=== PATIENT | female | born 1980 | race Hispanic/Latino ===

== ENCOUNTER 2018-06-19 00:39 | Inpatient (IN) | payer MEDICAID, SELFPAY ==
[2018-06-19 01:20] VITALS: BMI 27.3
[2018-06-19] MEDS ORDERED: Promethazine HCl 25 MG/ML VIAL IM PRN ×2 (02:10→09:58)
[2018-06-19] MEDS ORDERED: Ondansetron HCl/PF 4 MG/2 ML Vial IVP PRN ×3 (02:10→18:28)
[2018-06-19] MEDS ORDERED: Lidocaine 1% (PF) 30 ML VIAL SC PRN (02:10)
[2018-06-19] MEDS ORDERED: NS / Oxytocin 40 units/1000ml 1,000 ML IV PRN (02:10)
--- NOTE | 2018-06-19 02:14 | PDOC.LDHP ---
Labor and Delivery H&P Chief complaint: loss of fluid (clear, at 22:30 on 06/18/18) HPI: Patient presents after loss of clear fluid 22:30. She has started to have painful contractions 6/10 since then, 5-10 minutes apart. Denies vaginal bleeding. Reports mild headache, nausea, no vomiting. Denies dysuria. Due date: 06/24/18 Dating criteria: last menstrual period Grav: 1 Para: 0 Current complications: none, other (anemia of , rubella non- immune, AMA, pap smear LSIL and HPV positive) Abnormal US findings: No Past Medical History: None Current medications: pre-lenin vitamins Previous surgical history: appendectomy Social history: none - Physical Exam Vital signs reviewed and normal: yes (102/61, 79 pulse, 18 RR, 98.3F) General: NAD, resting Heart: RRR Lungs: nonlabored breathing Abdomen: gravid Extremeties: trace edema FHT: category 1 (140/mod variability/ pos accel/ no decel) [place] contractions every: 8 min - Vaginal Exam cm dilated: 0 - OB Labs Blood type: A RH: positive Antibody Screen: negative HIV: negative RPR: negative HEPSAg: negative 1 hour GCT: negative GBS: negative Rubella: non-immune - Assessment L&D Assessment: term rupture in membranes - Plan Plan: admit to L&D, labor augmentation if indicated -: 37 yo @ 39.2 wks by LMP presents after loss of fluid and now contractions. PROM - reported at 22:30 - Amnisure pending to confirm ROM - Cervix closed on sterile spec exam - Will augment labor with pitocin - admit for induction AMA - negative Rubella non-immune - MMR post LSIL/HPV + - colposcopy PP Patient was seen and examined by Dr. Jade who is in agreement with plan as stated above. <Gloria Zavala - Last Filed: 06/19/18 04:23> - Plan Plan: other (Elderly primagravida ROM - NIL at term. Martínez score <3. Will attempt to open cervix with pitocin and consider balloon vs iupc if success is limited. Patient at elevated risk for failed IOL and primary CS due to unfavorable cx @ ROM and elderly primagravida status.) <Carlton Jade - Last Filed: 06/19/18 06:54> Allergies/Adverse Reactions: Allergies Allergy/AdvReac Type Severity Reaction Status Date / Time No Known Allergies Allergy Verified 06/19/18 01:46
[2018-06-19] MEDS ORDERED: NS w/ Oxytocin 10 units 500 ML IV SCH (02:15)
[2018-06-19 03:13] LABS: Mean Corpuscular HGB CONC 35.3 g/dL (32.0-36.0); Mean Corpuscular Hemoglobin 34.2 pg (27.0-31.0); Mean Corpuscular Volume 96.9 fL (78.0-98.0); Mean Platelet Volume 9.5 fL (7.4-10.4); Platelet Count 196 thou/uL (130-400); RBC Distribution Width 12.9 % (11.5-14.5); White Blood Cell (WBC) Count 9.5 thou/uL (4.8-10.8)
[2018-06-19] MEDS ORDERED: Sodium Chloride 0.9% 1,000 ML IV SCH (03:15)
[2018-06-19 03:50] LABS: HBSAg Index 0.16 S/CO (0-0.99); Hep B Surf Ag Non-Reactive S/CO (NonReactive)
[2018-06-19 04:17] LABS: Syphilis Antibody Nonreactive (Nonreactive); Syphilis Antibody Index 0.06 S/CO (<1.00 Non-Reactive)
[2018-06-19] MEDS: Lactated Ringer's 1,000 ML IV SCH ×4 (04:22→15:46)
[2018-06-19] MEDS ORDERED: Bupivacaine 0.5% 20 ML, fentaNYL Citrate/PF 400 MCG in Sodium Chloride 0.9% 72 ML EPIDURAL SCH (04:30)
[2018-06-19] MEDS ORDERED: DISCONTINUE ALL PREVIOUS NARCOTICS FS SCH (04:30)
[2018-06-19 05:18] LABS: Amnisure Test RUPTURE DETECTED (No Rupture)
[2018-06-19 05:19] LABS: Amnisure Internal Control QC ACCEPTABLE (ACCEPTABLE)
[2018-06-19] MEDS ORDERED: Butorphanol Tartrate 1 MG/ML VIAL ONE (06:34)
--- NOTE | 2018-06-19 07:15 | PDOC.LDPN ---
Labor & Delivery Progress Note - Subjective Subjective: painful contractions - Objective Vital signs reviewed and normal: yes General: breathing through contractions Uterine fundus: non tender Dilation: 0 FHT: category 1 [place] contractions every: 2-4 Plan: pitocin for augmentation -: 37 yo @ 39.2 wks by LMP presents after PROM and contractions. - cervical checks at 0500 and 0700 were closed - will increase pitocin for more adequate contractions - consider cook balloon insertion
--- NOTE | 2018-06-19 09:44 | PDOC.LDPN ---
Labor & Delivery Progress Note - Subjective Subjective: other - Objective Vital signs reviewed and normal: yes General: resting Uterine fundus: non tender SVE: By Ware Dilation: 3 Effacement: 50% (60%) Station: -1 FHT: category 1 Other exam findings: Position cephalic by sono done at bedside; IUPC placed by Ware IUPC placed: yes - Assessment (1) PROM (premature rupture of membranes) Code(s): O42.90 - HIREN ROM, 7TH0 BETW RUPT & ONST LABR, UNSP WEEKS OF GEST Current Visit: Yes Status: Acute Plan: continue plan of care, labor augmentation (As cervix now favorable, ok to continue Pit. Plan discussed with patient, and resident ), pitocin for augmentation
--- NOTE | 2018-06-19 09:57 | PDOC.LDPN ---
Labor & Delivery Progress Note - Subjective Subjective: comfortable, no concerns - Objective Vital signs reviewed and normal: yes General: NAD, resting, breathing through contractions Uterine fundus: non tender Dilation: 3 Effacement: 50% Station: -1 FHT: category 1 [place] contractions every: every 2-4 min Procedures: IUPC placed by Dr. Ware IUPC placed: yes Resuscitative measures: maternal IV fluids - Assessment (1) PROM (premature rupture of membranes) Code(s): O42.90 - HIREN ROM, 7TH0 BETW RUPT & ONST LABR, UNSP WEEKS OF GEST Current Visit: Yes Status: Acute Plan: continue plan of care, pitocin for augmentation -: This is a 37 yo F @ 39.2wks by LMP who presented with PROM and CTX. Doing well, continuing to follow labor progression. PROM - continue plan of care - Epidural in place - labor augmentation: continue pitocin; vaginal cytotec not indicated at this time as patient is progressing - reconfirmed cephalic position with US at the bedside - Check at 0930: /-1. Will recheck in 2-4 hours - IUPC placed at [address] Ware - Cat 1 strip - Patient's VSS Plan discussed with patient, , and Dr. Ware
[2018-06-19] MEDS ORDERED: ePHEDrine/0.9% NaCl/PF SYRINGE 50 mg/10 ml SLOW IVP PRN (09:58)
[2018-06-19] MEDS ORDERED: Naloxone HCl 0.4 mg/ml Vial IVP PRN ×2 (09:58)
[2018-06-19] MEDS ORDERED: Acetaminophen 325 MG TAB PO PRN (09:58)
[2018-06-19] MEDS ORDERED: Lactated Ringer's 500 ML IV PRN (09:58)
[2018-06-19] MEDS ORDERED: diphenhydrAMINE 50 MG/ML VIAL IVP PRN (09:58)
[2018-06-19] MEDS ORDERED: Eucerin (Mineral Oil/Petrolatum,White) 30 gm Jar TOP PRN (09:58)
[2018-06-19] MEDS ORDERED: Communication Order-Pharmacy FS SCH (10:00)
[2018-06-19] MEDS ORDERED: fentaNYL Citrate/PF 400 MCG, Bupivacaine 0.5% 20 ML in Sodium Chloride 0.9% 72 ML EPIDURAL SCH (10:00)
[2018-06-19] MEDS ORDERED: Bupivacaine HCl 0.25%/Epi 0.0005/PF 10 ML VIAL FS ONE (11:11)
[2018-06-19] MEDS ORDERED: Lidocaine 2% PF Inj 2 ML VIAL ONE ×3 (11:11→17:15)
[2018-06-19] MEDS ORDERED: ePHEDrine/0.9% NaCl/PF SYRINGE 50 mg/10 ml ONE ×2 (11:11→15:15)
[2018-06-19] MEDS ORDERED: Bupivacaine 0.25% HCL 30 ML VIAL ONE (11:11)
--- NOTE | 2018-06-19 11:47 | PDOC.LDPN ---
Labor & Delivery Progress Note - Subjective Subjective: comfortable - Objective Vital signs reviewed and normal: yes General: resting Dilation: 3 Effacement: 50% Station: -1 FHT: category 2, late decelerations (2), variability present [place] contractions every: 3min IUPC placed: yes Plan: continue plan of care, pitocin for augmentation -: reposition and continue with pit.
--- NOTE | 2018-06-19 13:26 | PDOC.LDPN ---
Labor & Delivery Progress Note - Subjective Subjective: comfortable, other (vomiting) - Objective General: NAD Dilation: 6cm Effacement: 75% Station: -1 FHT: category 2, variable decelerations [place] contractions every: 2-3min Resuscitative measures: maternal oxygen Plan: continue plan of care, pitocin for augmentation -: pt had deep decel after an episode of vomiting. repositioned patient and given a fluid bolus. Pitocin held after decel. plan to restart now as fht look improved.
--- NOTE | 2018-06-19 15:12 | PDOC.LDPN ---
Labor & Delivery Progress Note - Subjective Subjective: other (emesis x2) - Objective Vital signs reviewed and normal: yes Dilation: 8 Effacement: 90% Station: -1 FHT: category 2 [place] contractions every: 3min Resuscitative measures: maternal oxygen Plan: continue plan of care, pitocin for augmentation -: pt had another episode of vomiting x2, and decells, holding pit for now
[2018-06-19] MEDS ORDERED: PHENYLEPHRINE-NS 100 MCG/ML 10 ML SYRINGE ONE ×2 (15:15→17:24)
[2018-06-19] MEDS ORDERED: Lidocaine 2% MPF 10 ML AMP (For Epidural Use) ONE (15:15)
[2018-06-19] MEDS ORDERED: Bicitra 30 ML UDCUP ONE (16:45)
[2018-06-19] MEDS ORDERED: CEFAZOLIN/Water 2 GM/20 ML SYRINGE ONE (16:45)
--- NOTE | 2018-06-19 16:47 | PDOC.EVN ---
Event Note - Event Note Event Note: PREOP CS Note: Strip checked with Patti/Thelma, persistent late decels despite position changes. Also with some wondering baseline. DX: persistent class 2 strip despite conservative maneuvers... Nonreassuring FHR tracing at 8cm. Persistent late decels with maintained variability. WE will send placenta and cord has at delivery Anesthesia being notified now as well as supervisor securities [facility]
[2018-06-19] MEDS ORDERED: CEFAZOLIN/Water 2 GM/20 ML SYRINGE SLOW IVP SCH (17:00)
[2018-06-19] MEDS ORDERED: Oxytocin 10 UNITS/ML VIAL ONE ×2 (17:24→17:58)
[2018-06-19] MEDS ORDERED: Meperidine HCl/PF 25 MG/ML VIAL ONE (17:28)
[2018-06-19] MEDS ORDERED: Ondansetron HCl/PF 4 MG/2 ML Vial ONE (17:29)
[2018-06-19] MEDS ORDERED: Midazolam HCl 2 mg/2 ml Vial ONE ×3 (17:31→18:23)
[2018-06-19] MEDS ORDERED: Methylergonovine 0.2 MG/ML VIAL ONE (17:46)
--- NOTE | 2018-06-19 18:14 | PDOC.EVN ---
Event Note - Event Note Event Note: Cord gas was clotted so no results...tried again from cord, but not able to draw. Apgars 9/9
--- NOTE | 2018-06-19 18:25 | OP ---
DATE OF PROCEDURE: 06/19/2018 FACULTY NOTE POSTOPERATIVE DIAGNOSIS: Nonreassuring heart rate tracing (persisting class II strip with late decelerations). PROCEDURE: Primary low transverse via Pfannenstiel. ATTENDING: Julien Ware M.D. SURGEON: Dr. Moody and Dr. Salazar. ANESTHESIA: Labor epidural. ANTIBIOTICS: Ancef and Zithromax which has been ordered 500 mg. COMPLICATIONS: None. COUNTS: Correct. DESCRIPTION OF PROCEDURE: In brief, I was scrubbed and participated in the primary perform ed via Pfannenstiel skin approach with the indication being nonreassuring heart rate tracing at [address] Moody and Dr. Salazar (both with the Family Medicine program) where primary and secondar y. Surgeons, and I was faculty. It is important to note that the occurred without complic ation. Intraoperative, the patient experienced a mild anxiety attack that was deemed not related to the actual surgery. Anesthesia was present for this and vital signs were stable, felt that this was more of an anxiety response than a true comorbidity from the actual surgery. The patient was given 4 mg of Versed by Anesthesia at their discretion with resolution of symptoms. Vital signs remained st able with no evidence of hypotension. There was no evidence of PPH during the case. I stayed until fascial closure and left at the time of subcutaneous closure. Baby was vigorous at with Apgars 9 and 9. Baby was a female. NICU was present for delivery. Please see the full dictation by the residents for full details.
[2018-06-19] MEDS ORDERED: Meperidine HCl/PF 25 MG/ML VIAL SLOW IVP PRN (18:28)
[2018-06-19] MEDS ORDERED: HYDROmorphone 2 MG/ML VIAL SLOW IVP PRN (18:28)
[2018-06-19] MEDS ORDERED: Ketorolac Tromethamine 30 MG/ML VIAL IVP SCH ×2 (18:30→20:15)
--- NOTE | 2018-06-19 18:40 | PDOC.OPDEL ---
OB Operative/Delivery Note Delivery Dr/Surgeon: Dr. Irby Assist: Dr. Moody; Attending: Dr. Ware Pre-Delivery Diagnosis: active labor, non-reassuring tracing Procedure/Post Delivery Dx: primary low transverse CS Weeks gestation: 39 (39.2) Anesthesia: spinal - Findings A Sex: female Weight: 6 lb 7 oz - 1 min: 9 - 5 min: 9 - Additional Findings/Plan Placenta delivered: spontaneous findings: low transverse hysterotomy without extension Estimated blood loss: 830 Compilations/Other Findings: Date of Procedure: 06/19/2018 Resident Surgeon: Dr. Irby Gantry Crane Operator Surgeon: Dr. Moody Attending Surgeon: Dr. Ware Procedure: primary low transverse caesarean section Preoperative Diagnosis: 1)Term intrauterine 2)PROM 3)AMA 4)Rubella nonimmune 5)Nonreassuring heart tones Postoperative Diagnosis: 1)Term intrauterine , delivered 2)PROM 3)AMA 4)Rubella nonimmune 5)Nonreassuring heart tones Anesthesia: spinal Indications: The patient is a 37 year old G1,P0 female at 39.2 weeks gestation who initially presented with PROM now presents for a primary low transverse csection 2/2 nonreassuring heart tones. Procedure in Detail: After risks, benefits, and alternatives were explained to the patient, she gave informed consent. Pre-operative antibiotics included Cefazolin 2 gram IV and azithromicin 500mg IV . The patient was taken to the operating room and spinal anesthesia was initiated. She was placed in the supine position with a left tilt and prepped and draped in usual sterile fashion. A Pfannenstiel incision was made with a scalpel and carried down to the level of the fascia which was sharply nicked. The fascial cut was extended bilaterally manually. The inferior and superior edges of the cut fascial edges were elevated with Leilani clamps and the underlying rectus muscles were sharply and bluntly dissected free. The recti were divided digitally and retracted manually. The peritoneum was entered bluntly and retracted manually. Bladder flap was created with Metzenbaum scissors. Edinson-O retractor was placed. A low transverse score was made with the scalpel and the uterus was entered in the midline with the scalpel. Clear fluid was seen. The hysterotomy was extended manually. The infant was noted to be vertex occipital posterior and was delivered by fundal pressure. Mouth and nares were bulb suctioned. Cord clamped and cut and grossly normal female was handed to waiting nurse. Cord blood was obtained. Placenta was manually extracted, found to be intact with 3 vessel cord and discarded. The uterus was externalized and the endometrium was curetted with a dry lap. At this point during the procedure, the patient experienced a panic attack. She received 6 mg of versed, and tolerated the remainder of the procedure well. The uterus was closed with a running locking 1- 0 Vicryl followed by a running non-locking 1-0 Vicryl imbricating suture. Following this, a 3-0 Chromic figure of eight stitch was provided. In addition to pitocin being provided to the patient, methergine .2mg IM was given and good hemostasis and uterine tone was obtained thereafter. The abdomen was irrigated with saline and suctioned free of clots. The uterus was internalized and the hysterotomy was again noted to be hemostatic. The peritoneum was closed with a 3 -0 Chromic running suture. The muscle was closed with a 1-0 Vicryl horizontal mattress suture. The fascia was closed with a running non-locking 0-PDS suture. The subcutaneous tissue was irrigated and there were no bleeders.The subcutaneous tissue was closed with three simple interrupted stitches using a 3- 0 Plain Gut suture. The skin was closed in the subcuticular fashion using a 4-0 Monocryl suture. Dermabond and a pressure dressing were placed. All counts were correct. The patient tolerated the procedure well and was taken to the recovery room in stable condition. Estimated Blood Loss: 830 ml Complications: None Specimens: Cord blood sent to lab Findings: Grossly normal female infant with Apgars of 9 and 9. Grossly normal placenta with 3 vessel cord discarded. Drains: Nolan to gravity draining clear urine; 200 ml Post delivery plan: recovery in LICU <Rachelle Irby - Last Filed: 06/19/18 19:27> - Additional Findings/Plan Compilations/Other Findings: Dual layer hysterotomy closure. Present and participated. Delon <Julien Ware - Last Filed: 06/19/18 20:04>
[2018-06-19] MEDS ORDERED: Bisacodyl 10 MG SUPP PR PRN (18:51)
[2018-06-19] MEDS ORDERED: Misoprostol 200 MCG TAB PR PRN (18:51)
[2018-06-19] MEDS ORDERED: Adacel (T-DAP) 0.5 ML VIAL IM ONE (18:51)
[2018-06-19] MEDS ORDERED: Lanolin Ointment 7 GM TUBE TOP PRN (18:51)
[2018-06-19] MEDS ORDERED: Methylergonovine 0.2 MG TAB PO PRN (18:51)
[2018-06-19] MEDS ORDERED: HYDROcodone/Acetaminophen 5/325 mg Tablet PO PRN ×2 (18:51)
[2018-06-19] MEDS: Azithromycin 500 MG in Sodium Chloride 0.9% 250 ML 250 ML IVPB SCH (19:47)
[2018-06-19] MEDS ORDERED: Ketorolac Tromethamine 30 MG/ML VIAL ONE (20:00)
[2018-06-19] MEDS ORDERED: Ibuprofen 800 MG TAB PO SCH (22:00)
[2018-06-19] MEDS ORDERED: Acetaminophen 1,000 MG in Premix Bag 1 BAG IVPB SCH (22:45)
[2018-06-19] MEDS: Docusate Calcium (SURFAK) 240 MG CAP PO SCH (23:04)
[2018-06-20] MEDS ORDERED: Ketorolac Tromethamine 30 MG/ML VIAL IVP SCH (02:00)
[2018-06-20] MEDS: Lactated Ringer's 1,000 ML IV SCH ×2 (05:22→21:18)
--- NOTE | 2018-06-20 05:29 | PDOC.PP ---
Post Progress Note Post Day #: 1 Subjective: Pain under good control, tolerating liquids PO intake tolerated: yes Flatus: yes Ambulation: yes Vital Signs (12 hours) Temp Pulse Resp BP BP Pulse Ox 06/20/18 04:55 98.4 F 67 18 100/56 L 97 06/20/18 00:25 98.6 F 79 20 105/53 L 98 06/19/18 22:38 98.8 F 73 20 117/57 L 99 06/19/18 21:42 98.1 F 86 20 96/53 L 98 06/19/18 20:36 98.6 F 73 18 109/55 L 97 06/19/18 19:17 98.9 F 90 18 06/19/18 18:52 98.9 F 90 18 108/76 Weight Weight 140 lb - Physical Examination General: NAD Cardiovascular: no m/r/g Respiratory: clear to auscultation bilaterally Abdominal: + bowel sounds, lochia, no distention, appropriately TTP Extremities: negative homans (B) Skin: CS incision dry & intact (Dressig was in use. I removed dressing to assess incision. Incision had DM over sutures so dressing removed. Incision C/D/ I) Neurological: no gross focal deficits Psychiatric: A&Ox3, normal affect Result Diagrams: 06/19/18 02:28 Additional Labs: Post Labs Blood Type A POSITIVE 06/19/18 02:28 Hep Bs Antigen Non-Reactive S/CO (NonReactive) 06/19/18 02:28 (1) PROM (premature rupture of membranes) Code(s): O42.90 - HIREN ROM, 7TH0 BETW RUPT & ONST LABR, UNSP WEEKS OF GEST Status: Acute (2) delivery delivered Code(s): O82 - ENCOUNTER FOR DELIVERY WITHOUT INDICATION Status: Acute - Assessment/Plan POD 1...Patient seen at bedside. I completed the CMS forms she requested me to complete for this hospitalization with LOS written on it until POD3. Ambulate today. Advance diet.
[2018-06-20 05:55] LABS: Hemoglobin 8.9 g/dL (12.0-16.0); Mean Corpuscular HGB CONC 34.4 g/dL (32.0-36.0); Mean Corpuscular Hemoglobin 33.4 pg (27.0-31.0); Mean Corpuscular Volume 97.2 fL (78.0-98.0); Mean Platelet Volume 9.5 fL (7.4-10.4); Platelet Count 161 thou/uL (130-400); RBC Distribution Width 13.1 % (11.5-14.5); Red Blood Cell (RBC) Count 2.66 mill/uL (4.20-5.40); White Blood Cell (WBC) Count 11.4 thou/uL (4.8-10.8)
[2018-06-20] MEDS: Ibuprofen 800 MG TAB PO SCH ×4 (07:06→23:42)
--- NOTE | 2018-06-20 07:10 | PDOC.PP ---
Post Progress Note Post Day #: 1 Subjective: 37 yo [id number] s/p primary LTCS at 39.2wks 2/2 nonreassuring heart tones. POD1 She complains of mild abdominal pain this morning, but did just receive norco. she has heard bazzi pulled overnight and has urinated since then. PO intake tolerated: yes Flatus: yes Ambulation: no Vital Signs (12 hours) Temp Pulse Resp BP BP Pulse Ox 06/20/18 04:55 98.4 F 67 18 100/56 L 97 06/20/18 00:25 98.6 F 79 20 105/53 L 98 06/19/18 22:38 98.8 F 73 20 117/57 L 99 06/19/18 21:42 98.1 F 86 20 96/53 L 98 06/19/18 20:36 98.6 F 73 18 109/55 L 97 06/19/18 19:17 98.9 F 90 18 Weight Weight 63.503 kg - Physical Examination General: NAD Cardiovascular: no m/r/g, RRR Respiratory: clear to auscultation bilaterally Abdominal: + bowel sounds, lochia (minimal) Fundus firm & at: umbilicus Skin: CS incision dry & intact, no rash Neurological: no gross focal deficits Psychiatric: A&Ox3, normal affect Result Diagrams: 06/20/18 05:12 Additional Labs: Post Labs Blood Type A POSITIVE 06/19/18 02:28 Hep Bs Antigen Non-Reactive S/CO (NonReactive) 06/19/18 02:28 (1) delivery delivered Code(s): O82 - ENCOUNTER FOR DELIVERY WITHOUT INDICATION Status: Acute (2) PROM (premature rupture of membranes) Code(s): O42.90 - HIREN ROM, 7TH0 BETW RUPT & ONST LABR, UNSP WEEKS OF GEST Status: Acute (3) Term delivered Code(s): O80 - ENCOUNTER FOR FULL-TERM UNCOMPLICATED DELIVERY Status: Acute (4) Advanced maternal age (AMA) in Code(s): [id number] - Status: Acute (5) Rubella nonimmune status, delivered, current hospitalization Code(s): O99.89 - OTH DISEASES AND CONDITIONS COMPL PREG/CHLDBRTH; Z28.3 - UNDERIMMUNIZATION STATUS Status: Acute - Assessment/Plan 37 yo [id number] s/p primary LTCS yesterday at 39.2wks 2/2 nonreassuring heart tones. 1.)Term , delivered 2.)S/p primary LTCS 3.)Rubella nonimmune 4.)Advanced maternal age Plan: -Ibuprofen 800mg [place] TID. [place] prn moderate to severe breakthrough pain. -Encouraged ambulation, advance diet as tolerated -Monitor UOP, vitals, recheck hemagram in am -H/H drop to 8.9/25.9 from 12/33.9. -Pt is not tachycardic snd is afebrile.
[2018-06-20] MEDS: Docusate Calcium (SURFAK) 240 MG CAP PO SCH ×2 (09:08→23:43)
[2018-06-20] MEDS: Prenatal Vitamin 1 TAB PO SCH (09:08)
[2018-06-20] MEDS: Azithromycin 500 MG in Sodium Chloride 0.9% 250 ML 250 ML IVPB SCH (17:40)
[2018-06-21] MEDS: Lactated Ringer's 1,000 ML IV SCH ×2 (01:11→10:59)
[2018-06-21] MEDS: Ibuprofen 800 MG TAB PO SCH ×3 (05:50→14:19)
[2018-06-21] MEDS: Prenatal Vitamin 1 TAB PO SCH (08:35)
[2018-06-21] MEDS: Docusate Calcium (SURFAK) 240 MG CAP PO SCH (08:35)
[2018-06-21 13:27] VITALS: BP 94/46; TEMP 98.2
[2018-06-21] MEDS ORDERED: Measles/Mumps/Rubella 10 MCG/0.5 ML VIAL SC ONE (15:00)
== END 2018-06-21 17:25 | disposition home or self-care (01) | DRG 766 ==
LOC: L&D/OP 00:39 → L&D 03:01 → 3SW 20:39
PROVIDERS: ADMIT Obstetrics & Gynecology; ATTEND Obstetrics & Gynecology
PROC: 10D00Z1 Extraction of Products of Conception, Low, Open Approach (ICD-10-PCS; principal; 2018-06-19)
DX: O76 Abnormality in fetal heart rate and rhythm complicating labor and delivery (principal); Z3A.39 39 weeks gestation of pregnancy; Z37.0 Single live birth
CPT/HCPCS: 36415; 51702; 84112; 85027; 86780; 86850; 86900; 86901; 87340; 88307; 90707; 99285; J0131; J0456; J0595; J1885; J2001; J2175; J2210; J2250; J2405; J2590; J3010; J3490; J7050; S0020

== ENCOUNTER 2025-05-19 09:02 | Inpatient (IN) | payer MEDICAID, OTHER ==
[2025-05-19] MEDS ORDERED: Ketorolac Tromethamine 30 MG (1 mL) VIAL ONE (09:39)
[2025-05-19] MEDS ORDERED: Ketamine In 0.9 % NaCl 50 MG/5 ML SYRINGE ONE (11:03)
[2025-05-19] MEDS ORDERED: Ondansetron PF 4 MG/2 ML Vial ONE (11:03)
[2025-05-19 11:09] LABS: #Basophils 0.06 10x3/uL (0.0-0.2); #Eosinophils 0.35 10x3/uL (0.0-0.7); #Monocytes 0.72 10x3/uL (0.11-0.59); #Neutrophils 10.00 10x3/uL (1.40-6.50); %Basophils 0.5 % (0.0-1.0); %Eosinophils 2.7 % (0.0-10.0); %Lymphocytes 13.1 % (21.0-51.0); %Monocytes 5.6 % (0.0-10.0); %Neutrophils 77.7 % (42.0-75.0); Hematocrit 39.4 % (36.0-47.0); Hemoglobin 13.1 g/dL (12.0-16.0); Mean Corpuscular Hemoglobin 30.0 pg (27.0-31.0); Mean Corpuscular Volume 90.4 fL (78.0-98.0); Platelet Count 333 10x3/uL (130-400); Red Blood Cell (RBC) Count 4.36 mill/uL (4.20-5.40); White Blood Cell (WBC) Count 12.86 10x3/uL (4.8-10.8)
[2025-05-19 11:19] LABS: BHCG - Serum Negative (NEGATIVE); Pregs Control Background? CLEAR/WHITE (CLR/WHITE); Pregs Control Bar Appear? YES (CONTROL BAR)
[2025-05-19 11:23] LABS: INR-International Normal Ratio 1.1; PTT 28.3 sec (22.9-36.1); Prothrombin Time 14.2 sec (12.0-14.7)
[2025-05-19 11:25] LABS: ALT (SGPT) 15 U/L (Less than 34); AST (SGOT) 23 U/L (11-34); Albumin 3.9 g/dL (3.1-4.5); Alkaline Phosphatase 63 U/L (40-110); Anion Gap 15 mmol/L (10-20); BUN (Urea Nitrogen) 21 mg/dL (7.0-18.7); Bilirubin, Total 0.4 mg/dL (0.3-1.2); Calc. Creatinine Clearance 0 mL/min (70-130); Calcium 8.8 mg/dL (7.8-10.44); Carbon Dioxide 24 mmol/L (22-29); Chloride 107 mmol/L (98-107); Globulin 3.6 g/dL (2.4-3.5); Glucose 105 mg/dL (70-105); Potassium 4.2 mmol/L (3.5-5.1); Sodium 142 mmol/L (136-145)
[2025-05-19] MEDS ORDERED: Methocarbamol 500 MG TAB PO PRN (11:45)
[2025-05-19] MEDS ORDERED: Dextrose 50% Abboject 50 ML SYRINGE SLOW IVP PRN (11:45)
[2025-05-19] MEDS ORDERED: hydrALAZINE 20 MG/ML VIAL SLOW IVP PRN (11:45)
[2025-05-19] MEDS ORDERED: Ondansetron PF 4 MG/2 ML Vial IVP PRN (11:45)
[2025-05-19] MEDS ORDERED: TETANUS, DIPHTHERIA TOX,ADULT (TDVAX) 0.5 ML VIAL IM ONE (11:45)
[2025-05-19] MEDS ORDERED: Glucagon 1 MG/ML KIT IM PRN (11:45)
[2025-05-19 13:31] VITALS: BMI 38.1
[2025-05-19] MEDS: 1/2 NS w/Potassium 20 mEq 1,000 ML IV SCH (15:56)
[2025-05-19] MEDS: Acetaminophen 325 MG TAB PO PRN (15:57)
[2025-05-19] MEDS: TETANUS AND DIPHTHERIA TOX/PF 0.5 ML DISP.SYRIN IM SCH (15:57)
[2025-05-20 05:37] LABS: #Basophils 0.06 10x3/uL (0.0-0.2); #Eosinophils 0.52 10x3/uL (0.0-0.7); #Monocytes 0.81 10x3/uL (0.11-0.59); #Neutrophils 4.66 10x3/uL (1.40-6.50); %Basophils 0.6 % (0.0-1.0); %Eosinophils 5.6 % (0.0-10.0); %Lymphocytes 34.4 % (21.0-51.0); %Monocytes 8.7 % (0.0-10.0); %Neutrophils 50.4 % (42.0-75.0); Hematocrit 36.9 % (36.0-47.0); Hemoglobin 11.9 g/dL (12.0-16.0); Mean Corpuscular Hemoglobin 30.5 pg (27.0-31.0); Mean Corpuscular Volume 94.6 fL (78.0-98.0); Platelet Count 302 10x3/uL (130-400); Red Blood Cell (RBC) Count 3.90 mill/uL (4.20-5.40); White Blood Cell (WBC) Count 9.27 10x3/uL (4.8-10.8)
[2025-05-20 06:25] LABS: Anion Gap 14 mmol/L (10-20); BUN (Urea Nitrogen) 13 mg/dL (7.0-18.7); Calc. Creatinine Clearance 120 mL/min (70-130); Calcium 8.3 mg/dL (7.8-10.44); Carbon Dioxide 17 mmol/L (22-29); Chloride 111 mmol/L (98-107); Glucose 90 mg/dL (70-105); Potassium 4.0 mmol/L (3.5-5.1); Sodium 138 mmol/L (136-145)
[2025-05-20] MEDS ORDERED: PROPOFOL 20 ML ONE (10:16)
[2025-05-20] MEDS ORDERED: Lidocaine 1% PF 5 ML VIAL ONE (10:16)
[2025-05-20] MEDS ORDERED: CEFAZOLIN 1 GM VIAL ONE (10:47)
[2025-05-20] MEDS ORDERED: fentaNYL PF 100 MCG/2 ML SYRINGE ONE (10:52)
[2025-05-20] MEDS ORDERED: Ondansetron PF 4 MG/2 ML Vial ONE (10:56)
[2025-05-20] MEDS ORDERED: Ketorolac Tromethamine 30 MG (1 mL) VIAL ONE (12:07)
[2025-05-20] MEDS: HYDROcodone/Acetaminophen 5/325 mg Tablet PO PRN (14:06)
[2025-05-20] MEDS: Senokot S 8.6-50 MG TAB PO SCH (20:40)
[2025-05-21] MEDS: Aspirin 81 mg Enteric Coated Tablet PO SCH (09:37)
[2025-05-21 16:11] VITALS: BP 102/57; TEMP 98
[2025-05-21] MEDS ORDERED: Aspirin 81 mg Enteric Coated Tablet PO SCH (21:00)
== END 2025-05-21 17:00 | disposition home or self-care (01) | DRG 494 ==
LOC: ERS 09:02 → SURG B 11:45 → OBSVTOIN 05-20 15:24
PROVIDERS: ADMIT Surgery; ATTEND Surgery
PROC: 0QSK04Z Reposition Left Fibula with Internal Fixation Device, Open Approach (ICD-10-PCS; principal; 2025-05-20)
PROC: 0QSH04Z Reposition Left Tibia with Internal Fixation Device, Open Approach (ICD-10-PCS; 2025-05-20)
DX: S82.842A Displaced bimalleolar fracture of left lower leg, initial encounter for closed fracture (principal); F10.90 Alcohol use, unspecified, uncomplicated; W01.0XXA Fall on same level from slipping, tripping and stumbling without subsequent striking against object, initial encounter; Z98.890 Other specified postprocedural states; Z90.49 Acquired absence of other specified parts of digestive tract; Z79.899 Other long term (current) drug therapy
CPT/HCPCS: 71045; 80048; 80053; 84703; 85025; 85610; 85730; 90714; 93005; C1713; G0378; G0390; J0690; J1100; J1885; J2405; J2704; J3010; J3480; J3490